=== PATIENT | female | born 1995 | race African-American/Black ===

== ENCOUNTER 2017-06-20 12:03 | Outpatient (CLI) | payer OTHER ==
--- NOTE | 2017-06-20 13:39 | Non Stress Test Report ---
Non Stress Test Datetime Report Generated by CPN: 06/20/2017 13:38 DEMOGRAPHIC EGA NST: 40.2 INDICATION Indication for Study: Ordered by Provider Indication for Study (NST) Other: nst postdates VITAL SIGNS Temperature - NST: 98.7 Pulse - NST: 96 RESP - NST: 18 NBPSYS NST: 123 NBPDIA NST: 58 MONITORING Monitor Explained: Monitor Explained; Test Explained; Patient Verbalized Understanding Time on Monitor: 06/20/2017 12:18 Time off Monitor: 06/20/2017 13:00 NST Duration: 42 NST INTERVENTIONS NST Interventions: PO Hydration; Reposition Patient Physician Notified NST: H Brooks CNM BABY A: [id number] BABY A Movement : Present Contraction Frequency : 0 FHR Baseline : 135 Accelerations : 15X15 Decelerations : None Variability : Moderate 6-25bpm NST Review: Meets Criteria for Reactive NST NST Review and Verified By : William Helton RNC NST Results: Reactive NST REPORT Report Trigger: Send Report
== END 2017-06-20 13:30 | disposition home or self-care (01) ==
LOC: LC 12:03
PROVIDERS: ATTEND Specialist
PROC: 4A1HXCZ Monitoring of Products of Conception, Cardiac Rate, External Approach (ICD-10-PCS; principal; 2017-06-20)
DX: O48.0 Post-term pregnancy (principal); Z3A.40 40 weeks gestation of pregnancy
CPT/HCPCS: 59025

== ENCOUNTER 2017-06-23 16:07 | Outpatient (CLI) | payer OTHER | END 2017-06-23 17:30 | disposition home or self-care (01) | LOC: LC 16:07 | PROVIDERS: ATTEND Obstetrics & Gynecology | PROC: 4A1HXCZ Monitoring of Products of Conception, Cardiac Rate, External Approach (ICD-10-PCS; principal; 2017-06-23) | DX: Z34.93 Encounter for supervision of normal pregnancy, unspecified, third trimester (principal) | CPT/HCPCS: 59025 ==

== ENCOUNTER 2017-06-25 08:05 | Inpatient (IN) | payer OTHER ==
[2017-06-25 08:37] LABS: APPEARANCE,URINE CLEAR; BILIRUBIN,URINE NEGATIVE (NEGATIVE); GLUCOSE, URINE NEGATIVE (NEGATIVE); KETONES,URINE NEGATIVE (NEGATIVE); LEUKOCYTE ESTERASE,URINE NEGATIVE (NEGATIVE); NITRITE,URINE NEGATIVE (NEGATIVE); PROTEIN,URINE NEGATIVE (NEGATIVE); URINE SPECIFIC GRAVITY 1.008; UROBILINOGEN,URINE NEGATIVE mg/dL (<2.0)
[2017-06-25 08:55] LABS: URINE BARBITURATES SCREEN NEGATIVE; URINE METHADONE SCREEN NEGATIVE; URINE OPIATES LOW NEGATIVE; URINE PHENCYCLIDINE SCREEN NEGATIVE
[2017-06-25] MEDS ORDERED: PENICILLIN G POTASSIUM 5,000,000 UNIT in DEXTROSE 5%-WATER 100 ML IV ONE (09:05)
[2017-06-25] MEDS ORDERED: RINGERS SOLUTION,LACTATED 1,000 ML IV PRN (09:05)
[2017-06-25] MEDS ORDERED: PENICILLIN G-K 5 MILLION UNIT VIAL ONE ×2 (09:06→13:08)
[2017-06-25 09:36] LABS: ABSOLUTE EOSINOPHILS # (AUTO) 0.1 10^3/uL (0.0-0.6); ABSOLUTE MONOCYTES (AUTO) 0.5 10^3/uL (0.1-1.4); ABSOLUTE NEUT (AUTO) 3.7 10^3/uL (1.7-8.2); BASOPHILS % (AUTO) 0.4 % (0-2); EOSINOPHILS % (AUTO) 0.9 % (0-6); HEMATOCRIT 29.7 % (36.0-47.0); HEMOGLOBIN 9.5 g/dL (12.0-15.5); HGB HCT DIFFERENCE -1.2; MEAN CORPUSCULAR HEMOGLOBIN 24.3 pg (27.0-33.4); MEAN CORPUSCULAR HGB CONC 32.1 g/dL (32.0-36.0); MEAN CORPUSCULAR VOLUME 76 fl (80-97); MONOCYTES % (AUTO) 7.4 % (3-13); RED BLOOD COUNT 3.92 10^6/uL (3.72-5.28); RED CELL DISTRIBUTION WIDTH 17.2 % (11.5-14.0); SEGMENTED NEUTROPHILS % (AUTO) 59.3 % (42-78); WHITE BLOOD COUNT 6.2 10^3/uL (4.0-10.5)
[2017-06-25] MEDS ORDERED: OXYTOCIN/NORMAL SALINE 1,000 ML IV PRN ×2 (10:32→14:18)
[2017-06-25] MEDS ORDERED: OXYTOCIN/NORMAL SALINE 20 UNIT/1,000 ML RTUINJ ONE (10:56)
--- NOTE | 2017-06-25 12:34 | L&D Progress Notes ---
PROGRESS NOTES Datetime Report Generated by CPN: 06/25/2017 12:34 PROGRESS NOTE Impression: Reassuring Heart Rate Procedures: Sterile Vag Exam Procedures- Other: SROM Plan: Continue Present Management; Augmentation Informed Consent Obtained: Vaginal Delivery Vital Signs : Reviewed Comment: SROM when up to ball Pitocin for augmentation Pt may have epidural, prn Anticipate VAGINAL EXAM Dilatation: 4 Dilatation: 4 Effacement: 75 Effacement: 75 Station: -3 Station: -3 Contractions: 2-7 Contractions: 2-5 MEMBRANES Membranes: Ruptured FETUS A FHR - Baseline: 135 Monitoring: External US Variability: Moderate 6-25bpm Accelerations: 15X15 Decelerations: None FHR Category: Category I Presentation: Vertex SIGNATURE SIGNATURE: [id number];[id number] SIGNATURE: [id number] Assignment: Chilango Mercado DO Signature: with User ID: [email or web address] : with User ID: [email or web address]
[2017-06-25] MEDS ORDERED: LIDOCAINE 1% INJ-PF (10 MG/ML) 30 ML SDV INJ PRN (12:39)
[2017-06-25] MEDS ORDERED: MISOPROSTOL 0.2 MG TABLET PR PRN (12:39)
[2017-06-25] MEDS ORDERED: MISOPROSTOL 0.2 MG TABLET ONE (13:06)
[2017-06-25] MEDS ORDERED: LIDOCAINE 1% INJ-PF (10 MG/ML) 30 ML SDV ONE (13:06)
[2017-06-25] MEDS ORDERED: PENICILLIN G POTASSIUM 2,500,000 UNIT in DEXTROSE 5%-WATER 50 ML IV SCH (14:00)
[2017-06-25] MEDS ORDERED: DIBUCAINE 1% OINTMENT 28 GM TP PRN (14:18)
[2017-06-25] MEDS ORDERED: ZOLPIDEM TARTRATE 5 MG TABLET PO PRN (14:18)
[2017-06-25] MEDS ORDERED: BENZOCAINE/MENTHOL AEROSOL SPRAY 56 ML TOP PRN (14:18)
[2017-06-25] MEDS ORDERED: DIPH/PERTUSS(ACELL)/TETANUS VAC/PF 0.5 ML SYR (>=10YO) IM PRN (14:18)
[2017-06-25] MEDS ORDERED: MEASLES,MUMPS&RUBELLA VACC/PF 0.5 ML VIAL SUBCUT PRN (14:18)
[2017-06-25] MEDS ORDERED: ACETAMINOPHEN WITH CODEINE #3 TABLET PO PRN (14:18)
[2017-06-25] MEDS ORDERED: IBUPROFEN 800 MG TABLET ONE (14:37)
[2017-06-25] MEDS ORDERED: ACETAMINOPHEN WITH CODEINE #3 TABLET ONE (15:40)
[2017-06-25] MEDS: ACETAMINOPHEN WITH CODEINE #3 TABLET PO PRN ×2 (15:40→20:16)
--- NOTE | 2017-06-25 16:15 | Admission Physical ---
Datetime Report Generated by CPN: 06/25/2017 16:15 CURRENT ADMISSION Hx Assessment: The History has been Reviewed and is Current Chief Complaint: Uterine Contractions Indication for Induction: Not Applicable Admit Impression- Other: augmentation prn Admit Plan: Admit to Unit; Initiate Labor Protocol ALLERGIES Medication Allergies: No Medication Allergies: No Known Allergies (06/25/2017) Medication Allergies: No Known Allergies (06/23/2017) Medication Allergies: No Known Allergies (05/25/2016) Latex: No Latex Allergies OBSTETRICAL HISTORY EDC: 06/18/2017 00:00 : 3 Para: 2 Term: 2 : 0 SAB: 0 IAB: 0 Ectopic: 0 Livin Cesareans: 0 VBACs: 0 Multiple Births: 0 Gestational Diabetes: No Rh Sensitization: No Incompetent Cervix: No AMANDA: No Infertility: No ART Treatment: No Uterine Anomaly: No IUGR: No Hx Previous C/S: No Macrosomia: No Hx Loss/Stillborn: No PIH: No Hx : No Placenta Previa/Abruption: No Depression/PP Depression: No PTL/PROM: No Post Hemorrhage: No Current Procedures: Ultrasound; NST SEE RECORDS Alcohol: No Marijuana : No Cocaine: No Other Illicit Drugs: No Cigarettes: Never Smoker. 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 Heart Disease: No Hosp/Surgery: Yes Autoimmune Disorder: No Anesthetic Complications: No Kidney Disease: No Abnormal Pap Smear: No Neuro/Epilepsy: No Psychiatric Disorders: No Other Medical Diseases: No Hepatitis/Liver Disease: No Significant Family History: No Varicosities/Phlebitis: No Trauma/Violence : No Thyroid Dysfunction: No INFECTIOUS HISTORY Gonorrhea: No Genital Herpes: No Chlamydia: No Tuberculosis: No Syphilis: No Hepatitis: No HIV/AIDS Exposure: No Rash or Viral Illness: No HPV: No PHYSICAL EXAM General: Normal HEENT: Normal Neurologic: Normal Thyroid: Normal Heart: Normal Lungs: Normal Breast: Normal Back: Normal Abdomen: Normal Genitourinary Exam: Normal Extremities: Normal DTRs: Normal Pelvic Type: Adequate Physical Exam Comments: pelvis proven to 7lbs 15oz Vital Signs: Reviewed; Within Normal Limits VAGINAL EXAM Dilatation: 4 Dilatation: 4 Effacement: 75 Effacement: 75 Station: -3 Station: -3 Contraction Comments: 2-7 Contraction Comments: 2-5 MEMBRANES Membranes: Ruptured FETUS A EGA: 41.0 Monitoring: External US FHR- Baseline: 135 Variability: Moderate 6-25bpm Accelerations: 15X15 Decelerations: None FHR Category: Category I Presentation: Vertex Admit Comment: Early labor GBS +, pcn Admit to L _ D See chart for complete hx Pitocin for augementation. PLANS FOR LABOR AND DELIVERY Labor and Delivery: None Pain Management: Natural; Medications; Epidural Feeding Preference: Both Benefit of Breast Feed Discussed: Yes Circumcision: N/A INFORMED CONSENT Informed Consent Obtained: Vaginal Delivery Assignment: Chilango Mercado DO Signature: with User ID: [email or web address] : with User ID: [email or web address]
--- NOTE | 2017-06-25 17:01 | Non Stress Test Report ---
Non Stress Test Datetime Report Generated by CPN: 06/25/2017 17:00 DEMOGRAPHIC Test Number: 2 Test Number: 2 EGA NST: 41.0 EGA NST: 40.5 INDICATION Indication for Study: Ordered by Provider Indication for Study: Ordered by Provider Indication for Study (NST) Other: Reoeat NST for postdates MONITORING Monitor Explained: Monitor Explained; Test Explained; Patient Verbalized Understanding Monitor Explained: Monitor Explained; Test Explained; Patient Verbalized Understanding Time on Monitor: 06/25/2017 09:31 Time on Monitor: 06/23/2017 16:36 Time off Monitor: 06/25/2017 09:55 Time off Monitor: 06/23/2017 17:21 NST Duration: 24 NST Duration: 45 NST INTERVENTIONS NST Interventions: None NST Interventions: PO Hydration Physician Notified NST: H. Chase CNM Physician Notified NST: J Vences CNM BABY A: [id number] BABY A Movement : Present Movement : Present Contraction Frequency : Irreg Contraction Frequency : irritability FHR Baseline : 135 FHR Baseline : 130 Accelerations : 15X15 Accelerations : 15X15 Decelerations : None Decelerations : None Variability : Moderate 6-25bpm Variability : Moderate 6-25bpm NST Review: Meets Criteria for Reactive NST NST Review: Meets Criteria for Reactive NST NST Review and Verified By : Theodore Magaña RN NST Results: Reactive NST Results: Reactive NST REPORT Report Trigger: Send Report
[2017-06-25] MEDS: FERROUS SULFATE 325 MG TABLET PO SCH (17:43)
[2017-06-25] MEDS: DOCUSATE SODIUM 100 MG CAPSULE PO SCH (17:43)
[2017-06-25] MEDS: IBUPROFEN 800 MG TABLET PO SCH (21:32)
[2017-06-26] MEDS: IBUPROFEN 800 MG TABLET PO SCH ×3 (06:23→21:59)
[2017-06-26 07:59] LABS: HEMATOCRIT 31.4 % (36.0-47.0); HEMOGLOBIN 10.1 g/dL (12.0-15.5); HGB HCT DIFFERENCE -1.1; MEAN CORPUSCULAR HEMOGLOBIN 24.9 pg (27.0-33.4); MEAN CORPUSCULAR HGB CONC 32.1 g/dL (32.0-36.0); MEAN CORPUSCULAR VOLUME 78 fl (80-97); RED BLOOD COUNT 4.04 10^6/uL (3.72-5.28); WHITE BLOOD COUNT 8.7 10^3/uL (4.0-10.5)
--- NOTE | 2017-06-26 08:54 | PDOC PROGRESS REPORT ---
Subjective-OB Subjective: Post Delivery Day: 1 21 year old. Denies any needs at this time, voiding without difficulty, lochia is stable, pain well controlled Physical Exam (OB) Vital Signs: Temp Pulse Resp BP Pulse Ox 98.2 F 80 16 113/61 100 06/26/17 07:35 06/26/17 07:35 06/26/17 07:35 06/26/17 07:35 06/26/17 07:35 Intake & Output 06/25/17 06/26/17 06/27/17 06:59 06:59 06:59 Weight 105.1 kg - Lochia Lochia Amount: Moderate 25-50 ml Lochia Color: Rubra/Red - Abdomen Description: Soft, Distended Hernia Present: No Fundal Description: Firm, Midline Fundal Height: u/u - u/2 Objective-Diagnostic Laboratory: 06/26/17 07:20 06/25/17 06/25/17 06/26/17 09:26 09:26 07:20 WBC 6.2 8.7 RBC 3.92 4.04 Hgb 9.5 L 10.1 L Hct 29.7 L 31.4 L MCV 76 L 78 L MCH 24.3 L 24.9 L MCHC 32.1 32.1 RDW 17.2 H 17.0 H Plt Count 231 243 Seg Neutrophils % 59.3 Lymphocytes % 32.0 Monocytes % 7.4 Eosinophils % 0.9 Basophils % 0.4 Absolute Neutrophils 3.7 Absolute Lymphocytes 2.0 Absolute Monocytes 0.5 Absolute Eosinophils 0.1 Absolute Basophils 0.0 Blood Type O NEGATIVE Antibody Screen NEGATIVE Assessment and Plan(PN) - Assessment and Plan (1) Acute blood loss anemia Is this a current diagnosis for this admission?: YesPlan: ferrous sulfate increase dietary iron (2) Delivery normal Is this a current diagnosis for this admission?: YesPlan: routine pp care - Time Spent with Patient Time with patient: Less than 15 minutes Critical Time spent with patient: Less than 15 minutes Medications reviewed and adjusted accordingly: Yes - Disposition Anticipated Discharge: Home Within: within 24 hours
[2017-06-26] MEDS: DOCUSATE SODIUM 100 MG CAPSULE PO SCH ×2 (10:23→17:16)
[2017-06-26] MEDS: SENNOSIDES/DOCUSATE 8.6-50 MG 1 EACH TABLET PO SCH (10:24)
[2017-06-26] MEDS: FERROUS SULFATE 325 MG TABLET PO SCH ×2 (10:24→17:16)
[2017-06-26] MEDS: PRENATAL VITAMIN W-O CA NO5/FE FUMARATE/FA CAPSULE PO SCH (10:24)
[2017-06-27] MEDS: IBUPROFEN 800 MG TABLET PO SCH (06:41)
--- NOTE | 2017-06-27 08:56 | PDOC PROGRESS REPORT ---
Subjective-OB Subjective: Post Delivery Day: 21 year old. Denies any needs at this time Doing well, no c/o, ready to go home, breast feeding, scant lochia, desires depo at 4 weeks Physical Exam (OB) Vital Signs: Temp Pulse Resp BP Pulse Ox 97.8 F 64 16 117/58 L 100 06/27/17 07:52 06/27/17 07:52 06/27/17 07:52 06/27/17 07:52 06/27/17 07:52 Intake & Output 06/26/17 06/27/17 06/28/17 06:59 06:59 06:59 Intake Total 300 Balance 300 Weight 105.1 kg - PIH/Pre-Eclampsia DTR's: 2 + Clonus: Negative Headache: Absent Epigastric Pain: No Visual Changes: No - Lochia Lochia Amount: Scant < 10 ml Lochia Color: Rubra/Red - Abdomen Description: Soft, Round Hernia Present: No Fundal Description: Firm Fundal Height: u/u - u/2 Objective-Diagnostic Laboratory: 06/26/17 07:20 06/26/17 13:47 Blood Type O NEGATIVE Assessment and Plan(PN) - Assessment and Plan (1) Acute blood loss anemia Is this a current diagnosis for this admission?: Yes (2) Positive GBS test Is this a current diagnosis for this admission?: Yes (3) Delivery normal Is this a current diagnosis for this admission?: Yes - Time Spent with Patient Time with patient: Less than 15 minutes Medications reviewed and adjusted accordingly: Yes - Disposition Anticipated Discharge: Home Within: Other - home today
--- NOTE | 2017-06-27 09:02 | PDOC DISCHARGE SUMMARY ---
Final Diagnosis Discharge Date: 06/27/17 - Final Diagnosis (1) Acute blood loss anemia Is this a current diagnosis for this admission?: Yes (2) Positive GBS test Is this a current diagnosis for this admission?: Yes (3) Delivery normal Is this a current diagnosis for this admission?: Yes Discharge Data - Discharge Medication Home Medications: Pnv No.122/Iron/Folic Acid [ Multi Tablet] 1 each PO DAILY 05/24/16 Ferrous Sulfate [Feosol 325 mg Tablet] 325 mg PO BID #60 tablet 05/27/16 Gestational Age: 41 Reason(s) for Admission: Onset of Labor, Group B Strep Positive Procedures: NST, Ultrasound Intrapartum Procedure(s): Spontaneous Vaginal Delivery - [place] Data Baby 1 Female at 1 minute: 8 at 5 minutes: 9 Weight: 3.856 kg Home with Mother: Yes Complications: No - Diagnosis Test Laboratory: Temp Pulse Resp BP Pulse Ox 97.8 F 64 16 117/58 L 100 06/27/17 07:52 06/27/17 07:52 06/27/17 07:52 06/27/17 07:52 06/27/17 07:52 06/25/17 06/25/17 06/26/17 08:15 09:26 07:20 RBC 3.92 4.04 Hgb 9.5 L 10.1 L Hct 29.7 L 31.4 L Urine Opiates Screen NEGATIVE - Discharge information/Instructions Discharge Activity: Activity As Tolerated, No Lifting Over 10 Pounds, No Lifting /Push/Pulling, Pelvic Rest Discharge Diet: As Tolerated, Regular Disposition: HOME, SELF-CARE Follow up with: [facility] in: 4, Weeks
[2017-06-27] MEDS: FERROUS SULFATE 325 MG TABLET PO SCH (09:20)
[2017-06-27] MEDS: DOCUSATE SODIUM 100 MG CAPSULE PO SCH (09:20)
[2017-06-27] MEDS: SENNOSIDES/DOCUSATE 8.6-50 MG 1 EACH TABLET PO SCH (09:20)
[2017-06-27] MEDS: PRENATAL VITAMIN W-O CA NO5/FE FUMARATE/FA CAPSULE PO SCH (09:20)
[2017-06-27 11:40] VITALS: BP 113/53
--- NOTE | 2017-06-28 11:07 | Delivery Summary ---
Del Sum A-C Datetime Report Generated by CPN: 06/28/2017 11:07 DELIVERY PERSONNEL DELIVERY PERSONNEL: [id number];[id number] DELIVERY PERSONNEL: [id number];[id number];[id number] DELIVERY PERSONNEL: [id number] DELIVERY PERSONNEL: [id number] Delivery Doctor:: Agnieszka Stone CNM Nurse Head Waiter/Waitress Banquet Certified:: Agnieszka Stone CNM Labor and Delivery Nurse:: Aletha Saucedo RNesthetician spa Nurse:: Lenore Sandoval RN Film Processing Supervisor:: Collin Sterling RN Nursery Nurse:: Mago Roth RN Drive Tester/FERTILIZER PROCESSING SUPERVISOR: Tanya Cohen, HAND STRIPPER MATERNAL INFORMATION Delivery Anesthesia: None Medications After Delivery: Pitocin Bolus-Please Comment Estimated Blood Loss (ml): 200 Maternal Complications: Precipitous Labor (<3hrs) Provider Comments: of viable female over intact perineum. Pt was in hands and knees, head delivered without difficulty, pt turned supine, shoulders and body delivered without difficulty. Infant with spontaneous cry and respirations, to maternal abdomen, cord clamped X2, cut free by pts mother, kept skin to skin, spontaneous delivery of placenta via swartz mechanism, appears intact, 3 VC. Vagina and perineum inspected, no lacerations noted. Hemostasis acheived with external fundal massage and IV pitocin, mother and infant in stable condition, routine pp care. LABOR SUMMARY [facility]: 06/18/2017 00:00 No. Babies in Womb: 1 Attempted: No Labor Anesthesia: None LABOR INFORMATION Reason for Induction: Not Applicable Onset of Labor: 06/25/2017 12:15 Complete Dilatation: 06/25/2017 13:33 Oxytocin: Augmentation Group B Beta Strep: Positive Antibiotics # of Doses: 2 Antibiotics Time of Last Dose: 1311 Name of Antibiotic Given: PCN Steroids Given: None Reason Steroids Not Administered: Not Applicable MEMBRANES Membranes Rupture Method: Spontaneous Rupture of Membranes: 06/25/2017 12:15 Length of Rupture (hr): 1.53 Amniotic Fluid Color: Light Meconium Amniotic Fluid Amount: Large Amniotic Fluid Odor: Normal STAGES OF LABOR Stage 1 hr: 1 Stage 1 min: 18 Stage 2 hr: 0 Stage 2 min: 14 Stage 3 hr: 0 Stage 3 min: 4 Total Time in Labor hr: 1 Total Time in Labor min: 36 VAGINAL DELIVERY Episiotomy: None Laceration Extension: N/A Laceration Type: None Laceration Repair: Not Applicable Laceration Repair Note: n/a Sponge Count Correct: N/A Sharps Count Correct: N/A CSECTION DELIVERY Primary Indication: N/A Secondary Indication: N/A CSection Urgency: N/A CSection Incidence: N/A Labor: N/A Elective: N/A CSection Incision: N/A BABY A INFORMATION Infant Delivery Date/Time: 06/25/2017 13:47 Method of Delivery: Vaginal Born in Route : No : N/A Forceps: N/A Vacuum Extraction: N/A Shoulder Dystocia : No PRESENTATION/POSITION BABY A Presentation: Cephalic Presentation: Cephalic Cephalic Presentation: Vertex Vertex Position: Left Occipital Anterior Breech Presentation: N/A PLACENTA INFORMATION BABY A Placenta Delivery Time : 06/25/2017 13:51 Placenta Method of Delivery: Spontaneous Placenta Status: Delivered SCORES BABY A Heart Rate 1 min: >100 bpm Resp Effort 1 min: Good Cry Reflex Irritability 1 min: Cough or Sneeze or Pulls Away Muscle Tone 1 min: Active Motion Color 1 min: Blue/Pale Resuscitation Effort 1 min: Tactile Stimulation SCORE 1 MIN: 8 Heart Rate 5 min: >100 bpm Resp Effort 5 min: Good Cry Reflex Irritability 5 min: Cough or Sneeze or Pulls Away Muscle Tone 5 min: Active Motion Color 5 min: Body [place], Extremities Blue Resuscitation Effort 5 min: Tactile Stimulation SCORE 5 MIN: 9 INFANT INFORMATION BABY A Gestational Age at Delivery: 41.0 Gestational Status: Late Term- 41- 41.6 Weeks Outcome : Liveborn Infant Condition : Stable Sex: Female IDENTIFICATION BABY A Infant Verification Date/Time: 06/25/2017 13:57 ID Band Number: [id number] Mother's Name Verified: Yes RN Verifying : Yasir Ira RN and CTanvi Sterling RN WEIGHT/LENGTH BABY A Infant Birthweight (gm): 3850 Weight (lb): 8 Weight (oz): 8 Length (in): 20.50 Length (cm): 52.07 CORD INFORMATION BABY A No. Cord Vessels: 3 Nuchal Cord : N/A Cord Blood Taken: Yes-For Eval (Mom's Blood Type - or O+) Infant Suction: Mouth; Nose ASSESSMENT BABY A Complications: Meconium Complications- Other: Terminal Meconium Physical Findings at Delivery: Within Normal Limits Respirations: Appears Normal Skin to Skin: Yes Skin to Skin Time (min): 50 Lumite Injector/ALS Called : No Transferred To: Remains with Mother BABY B INFORMATION : N/A SIGNATURES Assignment: Chilango Mercado DO Signature: with User ID: [email or web address] : with User ID: [email or web address]
== END 2017-06-27 12:53 | disposition home or self-care (01) | DRG 775 ==
LOC: LC 08:05 → LR 09:02 → 2N 16:14
PROVIDERS: ADMIT Obstetrics & Gynecology; ATTEND Obstetrics & Gynecology
PROC: 10E0XZZ Delivery of Products of Conception, External Approach (ICD-10-PCS; principal; 2017-06-25)
PROC: 4A1HXCZ Monitoring of Products of Conception, Cardiac Rate, External Approach (ICD-10-PCS; 2017-06-25)
PROC: 3E0234Z Introduction of Serum, Toxoid and Vaccine into Muscle, Percutaneous Approach (ICD-10-PCS; 2017-06-26)
DX: O77.0 Labor and delivery complicated by meconium in amniotic fluid (principal); D62 Acute posthemorrhagic anemia; O99.824 Streptococcus B carrier state complicating childbirth; O99.02 Anemia complicating childbirth; Z3A.41 41 weeks gestation of pregnancy; Z37.0 Single live birth; O26.893 Other specified pregnancy related conditions, third trimester; Z67.41 Type O blood, Rh negative; O62.3 Precipitate labor
CPT/HCPCS: 36415; 59025; 80307; 81005; 85025; 85027; 85461; 86592; 86850; 86900; 86901; J2540; J2590; J2790; J3490

== ENCOUNTER 2017-07-02 16:34 | Emergency (ER) | payer OTHER ==
[2017-07-02] MEDS ORDERED: IBUPROFEN 800 MG TABLET PO ONE (17:30)
--- NOTE | 2017-07-02 18:00 | ER Document Report ---
ED Hip Pain/Injury - General Chief Complaint: Hip Pain Stated Complaint: SWELLING IN FEET AND LEGS,HIP PAIN Time Seen by Provider: 07/02/17 17:05 Mode of Arrival: Ambulatory Information source: Patient Notes: 21-year-old female presents to ED for right hip pain. She states that she has had this pain during her and since her delivery on 06/25/2017. She states this pain does not radiate down her leg or to her back. She states she has had swollen feet since when she was . She states she has followed up with her DRAWER IN HAND but did not say anything more about the swollen leg just about the hip pain. They were not able to tell her why she has the hip pain. She states she has not had any x-rays of the hip. TRAVEL OUTSIDE OF THE [place] IN LAST 30 DAYS: No - HPI Patient complains to provider of: Hip Occurred: Other - Since Where: Home Onset/Duration: Gradual Quality of pain: Pressure Severity: Mild Pain Level: 2 Context: No trauma Symptoms prior to fall: Other - no injury Skin Color: Normal Rotation of extremity: None Pain with palpation of the pelvis: Yes Associated Symptoms: None - Related Data Allergies/Adverse Reactions: No Known Allergies Allergy (Verified 06/25/17 08:23) Past Medical History - General Information source: Patient - Social History Smoking Status: Never Smoker Cigarette use (# per day): No Chew tobacco use (# tins/day): No Smoking Education Provided: No Frequency of alcohol use: None Drug Abuse: None Lives with: Family Family History: Reviewed & Not Pertinent Patient has suicidal ideation: No Patient has homicidal ideation: No - Past Medical History Cardiac Medical History: Reports: None Pulmonary Medical History: Reports: None EENT Medical History: Reports: None Neurological Medical History: Reports: None Endocrine Medical History: Reports: None Renal/ Medical History: Reports: None Malignancy Medical History: Reports: None GI Medical History: Reports: None Musculoskeltal Medical History: Reports None Skin Medical History: Reports None Psychiatric Medical History: Reports: None Traumatic Medical History: Reports: None Infectious Medical History: Reports: None Surgical Hx: Negative Past Surgical History: Reports: None Review of Systems - Review of Systems Constitutional: No symptoms reported EENT: No symptoms reported Cardiovascular: No symptoms reported Respiratory: No symptoms reported Gastrointestinal: No symptoms reported Genitourinary: No symptoms reported Female Genitourinary: No symptoms reported Musculoskeletal: Ankle swelling, Other - right hip Skin: No symptoms reported Hematologic/Lymphatic: No symptoms reported Neurological/Psychological: No symptoms reported -: Yes All other systems reviewed and negative Physical Exam - Vital signs Vitals: Temp Pulse Resp BP Pulse Ox 99 F 59 L 13 152/73 H 99 07/02/17 16:46 07/02/17 16:46 07/02/17 16:46 07/02/17 16:46 07/02/17 16:46 Interpretation: Normal - General General appearance: Appears well, Alert - HEENT Head: Normocephalic, Atraumatic Eyes: Normal Pupils: PERRL - Respiratory Respiratory status: No respiratory distress Chest status: Nontender Breath sounds: Normal Chest palpation: Normal - Cardiovascular Rhythm: Regular Heart sounds: Normal auscultation Murmur: No - Abdominal Inspection: Normal Distension: No distension Bowel sounds: Normal Tenderness: Nontender Organomegaly: No organomegaly - Back Back: Normal, Nontender - Extremities General upper extremity: Normal inspection, Nontender, Normal color, Normal ROM , Normal temperature General lower extremity: Normal color, Normal ROM, Normal temperature, Normal weight bearing. No: Milagro's sign Hip: Tender, Pain with ROM - due to pain Ankle: Edema - Neurological Neuro grossly intact: Yes Cognition: Normal Orientation: AAOx4 [place] Coma Scale Eye Opening: Spontaneous [place] Coma Scale Verbal: Oriented [place] Coma Scale Motor: Obeys Commands [place] Coma Scale Total: 15 Speech: Normal Motor strength normal: LUE, RUE, LLE, RLE Sensory: Normal - Psychological Associated symptoms: Normal affect, Normal mood - Skin Skin Temperature: Warm Skin Moisture: Dry Skin Color: Normal Course - Re-evaluation Re-evalutation: 07/02/17 19:50 Discussed x-ray with patient and written report given to patient to follow-up with primary doctor. Patient instructed to follow-up with her straightener hand concerning her swelling to her ankles and with a orthopedic doctor for her continued right hip pain. - Vital Signs Vital signs: Temp Pulse Resp BP Pulse Ox 99.1 F 47 L 13 173/77 H 100 07/02/17 19:16 07/02/17 19:16 07/02/17 16:46 07/02/17 19:16 07/02/17 19:16 - Diagnostic Test Radiology reviewed: Image reviewed, Reports reviewed Discharge - Discharge Clinical Impression: Right hip pain, Pedal edema Condition: Stable Disposition: HOME, SELF-CARE Instructions: Use of Pqma-Yab-Ryxgvzf Ibuprofen ([facility]) Additional Instructions: You were seen today for pain in your right hip that started during . Denied any injury or fall. You state you have followed up with your primary doctor. You have denied any numbness or tingling to your leg. We have also been seen today for swelling to your feet and ankles We will need to elevate your feet when possible and decrease the salt from your diet. You also need to call your OB and let them know you are having some swelling to your feet and ankles 7 days after delivery. You have been treated with ibuprofen for your hip pain. You will need to follow -up with the orthopedic doctor as your x-rays are negative for any acute injuries or problems with her hip. FOLLOW-UP CARE: If you have been referred to a physician for follow-up care, call the physician s office for an appointment as you were instructed or within the next two days. If you experience worsening or a significant change in your symptoms, notify the physician immediately or return to the Emergency Department at any time for re-evaluation. Forms: Elevated Blood Pressure Referrals: EZEKIEL AGUDELO MD [Primary Care Provider] - Follow up as needed HALLE SIM DO [ACTIVE STAFF] - Follow up as needed
--- NOTE | 2017-07-02 18:26 | RADIOLOGY REPORT (SQ) ---
EXAM DESCRIPTION: HIP RIGHT AP/LATERAL COMPLETED DATE/TIME: 07/02/2017 5:56 pm REASON FOR STUDY: right hip pain, during pregnance and since deliver COMPARISON: None. NUMBER OF VIEWS: Two views. TECHNIQUE: AP pelvis and additional frog-leg view of the right hip. LIMITATIONS: None. FINDINGS: MINERALIZATION: Normal. RIGHT HIP: No fracture or dislocation. No worrisome bone lesions. LEFT HIP: No fracture or dislocation. No worrisome bone lesions. PUBIS AND ISCHIUM: No fracture. PELVIS: No fracture. SACRUM: No fracture or dislocation. No worrisome bone lesions. LOWER LUMBAR SPINE: No fracture or dislocation. No worrisome bone lesions. No significant disc disea se. SOFT TISSUES: No findings. OTHER: No other significant finding. IMPRESSION: NEGATIVE STUDY OF THE RIGHT HIP. NO RADIOGRAPHIC EVIDENCE OF ACUTE INJURY. TECHNICAL DOCUMENTATION: JOB ID: [id number] [employer]- All Rights Reserved
[2017-07-02 19:23] VITALS: BP 173/77
== END 2017-07-02 19:22 | disposition home or self-care (01) ==
LOC: ER 16:34
DX: M25.551 Pain in right hip (principal); R60.0 Localized edema; M79.89 Other specified soft tissue disorders
CPT/HCPCS: 99283

== ENCOUNTER 2017-07-05 22:24 | Emergency (ER) | payer OTHER ==
--- NOTE | 2017-07-05 23:46 | ER Document Report ---
ED Medical Screen (RME) - General Chief Complaint: Flank Pain Stated Complaint: FLANK PAIN Time Seen by Provider: 07/05/17 23:41 Notes: 21 year old female, chief complaint of right flank pain that is worsening x3 days, some difficulty urinating. Denies N/V, fever/chills, denies history of kidney stones. She is s/p vaginal delivery on 06/25/17. Took ibuprofen at 1600. TRAVEL OUTSIDE OF THE [place] IN LAST 30 DAYS: No - Related Data Allergies/Adverse Reactions: No Known Allergies Allergy (Verified 06/25/17 08:23) Past Medical History Renal/ Medical History: Denies: Hx Peritoneal Dialysis Physical Exam - Vital signs Vitals: Temp Pulse Resp BP Pulse Ox 99.1 F 61 18 175/97 H 99 07/05/17 22:45 07/05/17 22:45 07/05/17 22:45 07/05/17 22:45 07/05/17 22:45 - Abdominal Inspection: Normal Tenderness: Nontender. No: Tender - Back Back: CVA tenderness - right Course - Re-evaluation Re-evalutation: Right CVA tender. Abdomen soft and non-tender. No fever. Hypertensive but in pain. Declines pain medication. Suspect pyelonephritis, retained products less likely. 3 days of worsening constant pain that was gradual not suggesting stone. - Vital Signs Vital signs: Temp Pulse Resp BP Pulse Ox 99.1 F 61 18 175/97 H 99 07/05/17 22:45 07/05/17 22:45 07/05/17 22:45 07/05/17 22:45 07/05/17 22:45
[2017-07-05 23:49] LABS: ABSOLUTE EOSINOPHILS # (AUTO) 0.1 10^3/uL (0.0-0.6); ABSOLUTE LYMPHOCYTES (AUTO) 1.3 10^3/uL (0.5-4.7); ABSOLUTE MONOCYTES (AUTO) 0.4 10^3/uL (0.1-1.4); BASOPHILS % (AUTO) 0.4 % (0-2); EOSINOPHILS % (AUTO) 1.5 % (0-6); HEMOGLOBIN 13.4 g/dL (12.0-15.5); HGB HCT DIFFERENCE -1.8; LYMPHOCYTES % (AUTO) 22.3 % (13-45); MEAN CORPUSCULAR HEMOGLOBIN 24.6 pg (27.0-33.4); MEAN CORPUSCULAR HGB CONC 31.8 g/dL (32.0-36.0); MEAN CORPUSCULAR VOLUME 77 fl (80-97); MONOCYTES % (AUTO) 6.4 % (3-13); RED BLOOD COUNT 5.43 10^6/uL (3.72-5.28); RED CELL DISTRIBUTION WIDTH 17.4 % (11.5-14.0); SEGMENTED NEUTROPHILS % (AUTO) 69.4 % (42-78); WHITE BLOOD COUNT 5.8 10^3/uL (4.0-10.5)
[2017-07-06 00:02] LABS: ALANINE AMINOTRANSFERASE 67 U/L (9-52); ALBUMIN 4.3 g/dL (3.5-5.0); ALKALINE PHOSPHATASE 184 U/L (38-126); ANION GAP 11 (5-19); ASPARTATE AMINO TRANSFERASE 44 U/L (14-36); BILIRUBIN,DIRECT 0.4 mg/dL (0.0-0.4); BILIRUBIN,TOTAL 0.6 mg/dL (0.2-1.3); BLOOD UREA NITROGEN 12 mg/dL (7-20); CALCIUM 9.5 mg/dL (8.4-10.2); CARBON DIOXIDE 28 mmol/L (22-30); CHLORIDE 103 mmol/L (98-107); CREATININE RESULT 0.62 mg/dL (0.52-1.25); GLUCOSE 86 mg/dL (75-110); POTASSIUM 4.2 mmol/L (3.6-5.0); SODIUM 141.7 mmol/L (137-145); TOTAL PROTEIN 8.7 g/dL (6.3-8.2)
--- NOTE | 2017-07-06 00:20 | ER Document Report ---
ED GI/ - General Chief Complaint: Flank Pain Stated Complaint: FLANK PAIN Time Seen by Provider: 07/05/17 23:41 Notes: Patient is a 21 year old female, chief complaint of right flank pain that is worsening x3 days, some difficulty urinating. She starts that the discomfort started out mild and has gradually worsened, she states the pain is constant. Denies N/V, fever/chills, denies history of kidney stones. She is s/p vaginal delivery on 06/25/17. Took ibuprofen at 1600. Patient denies any heavy vaginal bleeding or pelvic pain, she denies any abdominal pain. She is currently breast -feeding. TRAVEL OUTSIDE OF THE [place] IN LAST 30 DAYS: No - Related Data Allergies/Adverse Reactions: No Known Allergies Allergy (Verified 06/25/17 08:23) Past Medical History - General Information source: Patient - Social History Smoking Status: Never Smoker Frequency of alcohol use: None Drug Abuse: None Lives with: Family Family History: Reviewed & Not Pertinent Patient has suicidal ideation: No Patient has homicidal ideation: No - Medical History Medical History: Negative Renal/ Medical History: Denies: Hx Peritoneal Dialysis Surgical Hx: Negative - Immunizations Immunizations up to date: Yes Hx Diphtheria, Pertussis, Tetanus Vaccination: Yes Review of Systems - Review of Systems Constitutional: No symptoms reported EENT: No symptoms reported Cardiovascular: No symptoms reported Respiratory: No symptoms reported Gastrointestinal: See HPI Genitourinary: See HPI Female Genitourinary: See HPI Musculoskeletal: No symptoms reported Skin: No symptoms reported Hematologic/Lymphatic: No symptoms reported Neurological/Psychological: No symptoms reported Physical Exam - Vital signs Vitals: Temp Pulse Resp BP Pulse Ox 99.1 F 61 18 175/97 H 99 07/05/17 22:45 07/05/17 22:45 07/05/17 22:45 07/05/17 22:45 07/05/17 22:45 Interpretation: Normal - General General appearance: Alert In distress: Mild - Patient appears to be in mild discomfort - HEENT Head: Normocephalic, Atraumatic Eyes: Normal Pupils: PERRL - Respiratory Respiratory status: No respiratory distress Chest status: Nontender Breath sounds: Normal. No: Decreased air movement, Stridor, Wheezing Chest palpation: Normal - Cardiovascular Rhythm: Regular. No: Tachycardia Heart sounds: Normal auscultation, S1 appreciated, S2 appreciated Murmur: No - Abdominal Inspection: Normal Distension: No distension Bowel sounds: Normal Tenderness: Nontender. No: Tender, McBurney's point, Saenz's sign, Guarding Organomegaly: No organomegaly - Back Back: Normal, Nontender, CVA tenderness - Right-sided CVA tenderness, left unremarkable, remaining back exam is unremarkable - Extremities General upper extremity: Normal inspection, Nontender, Normal color, Normal ROM , Normal temperature General lower extremity: Normal inspection, Nontender, Normal color, Normal ROM , Normal temperature, Normal weight bearing. No: Milagro's sign - Neurological Neuro grossly intact: Yes Cognition: Normal Orientation: AAOx4 [place] Coma Scale Eye Opening: Spontaneous [place] Coma Scale Verbal: Oriented [place] Coma Scale Motor: Obeys Commands [place] Coma Scale Total: 15 Speech: Normal Motor strength normal: LUE, RUE, LLE, RLE Sensory: Normal - Psychological Associated symptoms: Normal affect, Normal mood - Skin Skin Temperature: Warm Skin Moisture: Dry Skin Color: Normal Course - Re-evaluation Re-evalutation: Patient does appear mildly uncomfortable on initial evaluation, for she disagrees to anything, then agrees to Toradol after explained that there is not any evidence of interference with nursing. After Toradol she is much more comfortable, she denies any symptoms, her blood pressure dropped significantly and nearly normalized. CBC unremarkable, chemistry shows very mildly elevated LFTs, right upper quadrant is completely unremarkable, patient has no lower extremity edema, blood pressure has nearly normalized. Urinalysis does indicate infection, patient does have right-sided CVA tenderness. I did discuss possibility of kidney stone although her presentation and slowly gradually worsening symptoms along with dysuria do not suggest kidney stone. Patient does not present like a kidney stone. No fever, tachycardia, vomiting, abdominal pain. After discussion any imaging was declined, patient will be treated with Rocephin, outpatient antibiotics, patient does ask for some Toradol to take if needed. She states she will return if she develops return or worsening pain, fever, vomiting, or any other concerning symptoms. - Vital Signs Vital signs: Temp Pulse Resp BP Pulse Ox 99.1 F 61 14 133/75 H 100 07/05/17 22:45 07/05/17 22:45 07/06/17 04:01 07/06/17 04:01 07/06/17 04:01 - Laboratory Result Diagrams: 07/05/17 23:30 07/05/17 23:30 Laboratory results interpreted by me: 07/05/17 07/05/17 07/05/17 23:30 23:30 23:30 RBC 5.43 H MCV 77 L MCH 24.6 L MCHC 31.8 L RDW 17.4 H AST 44 H ALT 67 H Alkaline Phosphatase 184 H Total Protein 8.7 H Urine Protein 30 H Urine Blood LARGE H Ur Leukocyte Esterase LARGE H Discharge - Discharge Clinical Impression: Right flank pain Urinary tract infection Qualifiers: Urinary tract infection type: site unspecified Hematuria presence: without hematuria Qualified Code(s): N39.0 - Urinary tract infection, site not specified Condition: Stable Disposition: HOME, SELF-CARE Additional Instructions: Your exam, symptoms, and workup are consistent with a urinary tract infection, probably early kidney infection. Take antibiotic as prescribed to completion. Take ibuprofen OR the toradol given for pain (drink plenty of fluids, take with food). Followup with OBGYN for monitoring of blood pressure and slightly elevated liver enzyme. Return to the ED for any concerning symptoms - fever, vomiting, returned or increased pain, etc. Prescriptions: Ketorolac Tromethamine [Toradol 10 mg Tablet] 10 mg PO Q8HP PRN #8 tablet PRN Reason: Cephalexin Monohydrate [Keflex 500 mg Capsule] 500 mg PO BID #14 capsule Forms: Elevated Blood Pressure
[2017-07-06] MEDS ORDERED: KETOROLAC TROMETHAMINE INJ/PF 30 MG/1 ML SDV IV ONE (01:17)
[2017-07-06 01:29] LABS: APPEARANCE,URINE SLIGHTLY-CLOUDY; BILIRUBIN,URINE NEGATIVE (NEGATIVE); GLUCOSE, URINE NEGATIVE (NEGATIVE); KETONES,URINE NEGATIVE (NEGATIVE); LEUKOCYTE ESTERASE,URINE LARGE (NEGATIVE); NITRITE,URINE NEGATIVE (NEGATIVE); PROTEIN,URINE 30 mg/dL (NEGATIVE); URINE SPECIFIC GRAVITY 1.006; UROBILINOGEN,URINE NEGATIVE mg/dL (<2.0)
[2017-07-06] MEDS ORDERED: CEFTRIAXONE 1 GM/D5W RTU 50 ML IV ONE (01:31)
[2017-07-06 04:08] VITALS: BP 133/75
== END 2017-07-06 04:06 | disposition home or self-care (01) ==
LOC: ER 22:24
DX: N39.0 Urinary tract infection, site not specified (principal); R10.9 Unspecified abdominal pain
CPT/HCPCS: 99284; 96375; 96365; 36415; 87086; 85025; 87088; 80053; 81001; 87186; J1885; J0696